=== PATIENT | female | born 1940 | race Caucasian/White ===

== ENCOUNTER → 2016-07-05 | Outpatient (CLI) | payer MEDICARE, BC ==
[~2016-07-05] MED LIST: ALEVE220 M1 PO; AMOXICILLIN500 MG PO; CENTRUM SILVER1 EACH PO; FEOSOL325 MG PO
--- NOTE | ~2016-07-05 | OR ---
PATIENT'S NAME: CTAHI CELESTE [facility] AGE: 76 Y [address] ROOM: [place], [place] [address] LOCATION: [facility] ADMIT DATE: 07/05/2016 OR/Procedure Report DISCHARGE DATE: FAMILY PHYSICIAN: Jd Griffin MD ATTENDING PHYSICIAN: CARROLL HICKS SURGEON: Carroll Hicks MD GLUCOSE AND SYRUP WEIGHER: Aamdor Scanlon, CAMPUS WELLNESS COORDINATOR/SURFACING MACHINE OPERATOR. DATE OF PROCEDURE: 07/05/2016 POSTOPERATIVE DIAGNOSIS: Right hip degenerative joint disease. POSTOPERATIVE DIAGNOSIS: Right hip degenerative joint disease. PROCEDURE PERFORMED: Right hip intra-articular cortisone injection under fluoroscopic guidance. ANESTHESIA: Local. INDICATION FOR PROCEDURE: Ms. Celeste is a 76-year-old female with advanced right hip degenerative joint disease. Intra-articular injection is indicated in an effort to control her symptoms nonoperatively and postpone the need for hip replacement. She has been informed of the risk of iatrogenic infection and allergic reaction. Informed consent granted. DESCRIPTION OF PROCEDURE: The patient was positioned supine. The anterolateral aspect of the right hip was prepped several times with Betadine. The patient verbally confirmed that the right hip was the intended site of injection. Subcutaneous tissues at the site of anticipated injection were infiltrated with 5 mL of 1% plain lidocaine using a 25-gauge needle. The skin was subsequently re-prepped, and a 20-gauge spinal needle was advanced through the anesthetized area down to and through the anterior capsule. This was performed under fluoroscopic guidance. Having confirmed intra-articular position of the tip of the needle fluoroscopically, the joint space was injected with 5 mL of a 1:1 mixture of 0.25% plain Marcaine and Isovue. An arthrogram image was obtained (confirming intra-articular position of the tip of the needle). Having done so, the joint space was injected with 80 mg of Depo-Medrol. Fluoroscopic imaging confirmed the presence of full-thickness cephalad joint space narrowing. There were no complications or breaches in sterile technique. PATIENT'S NAME: CATHI CELESTE [facility] AGE: 76 Y [address] ROOM: [place], [place] [address] LOCATION: [facility] ADMIT DATE: 07/05/2016 OR/Procedure Report DISCHARGE DATE: FAMILY PHYSICIAN: Jd Griffin MD ATTENDING PHYSICIAN: CARROLL HICKS MD JMW/radha /[id number] d: 07/05/162310 t: 07/21/162033, OPERATIVE SUMMARY
== END | disposition disaster alternative care site (69) ==
LOC: GRAD 16:39
PROC: 3E0U33Z Introduction of Anti-inflammatory into Joints, Percutaneous Approach (ICD-10-PCS; principal; 2016-07-05)
PROC: 3E0U3BZ Introduction of Anesthetic Agent into Joints, Percutaneous Approach (ICD-10-PCS; 2016-07-05)
PROC: 0S993ZZ Drainage of Right Hip Joint, Percutaneous Approach (ICD-10-PCS; 2016-07-05)
DX: M25.551 Pain in right hip (principal); M16.11 Unilateral primary osteoarthritis, right hip
CPT/HCPCS: J1040

== ENCOUNTER → 2016-10-27 | Outpatient (CLI) | payer MEDICARE, BC | LOC: GNJRC 10:31 | DX: Z01.818 Encounter for other preprocedural examination (principal); M16.11 Unilateral primary osteoarthritis, right hip ==